=== PATIENT | male | born 1975 | race Caucasian/White ===

== ENCOUNTER 2019-09-13 19:58 | Emergency (ER) | payer OTHER ==
[~2019-09-13] VITALS: Ht 177.8 cm; Wt 112.0 kg
[2019-09-13 20:27] VITALS: Ht 177.8 cm; Wt 112.0 kg
[2019-09-13 22:11] LABS: PLATELET COUNT 359 x10^3mcL (130-400)
[2019-09-13 22:14] LABS: BASOPHIL % 0 % (0-2)
[2019-09-13 22:28] LABS: ALBUMIN 3.3 g/dL (3.4-5.0); ALKALINE PHOSPHATASE 61 U/L (46-116); ALT/SGPT 29 U/L (16-63); AST/SGOT 15 U/L (15-37); BILIRUBIN TOTAL 0.4 mg/dL (0.20-1.00); CALCIUM 8.7 mg/dL (8.5-10.1); CARBON DIOXIDE 28.4 mmol/L (21-32); CHLORIDE SERUM 99 mmol/L (98-107); CREATININE SERUM 0.9 mg/dL (0.7-1.3); GFR1 > 60 mL/min; GLUCOSE SERUM 213 mg/dL (74-106); POTASSIUM SERUM 3.9 mmol/L (3.5-5.1); SODIUM SERUM 136 mmol/L (136-145); TOTAL PROTEIN, SERUM 8.1 g/dL (6.4-8.2)
[2019-09-14 07:20] VITALS: BP 118/71
== END 2019-09-14 07:20 | disposition short-term general hospital (02) ==
LOC: ED 19:58
PROVIDERS: Emergency Medicine
DX: K62.89 Other specified diseases of anus and rectum (principal)
CPT/HCPCS: J0295; J2270; J2405; Q9967

== ENCOUNTER 2020-09-03 11:01 | Inpatient (IN) | payer OTHER ==
[~2020-09-03] VITALS: Ht 175.3 cm; Wt 131.5 kg
[2020-09-03 11:03] VITALS: Ht 175.3 cm; Wt 131.5 kg
[2020-09-03 12:14] LABS: CALCIUM 8.6 mg/dL (8.5-10.1); CARBON DIOXIDE 22.3 mmol/L (21-32); CHLORIDE SERUM 90 mmol/L (98-107); CREATININE SERUM 0.9 mg/dL (0.7-1.3); GFR1 > 60 mL/min; GLUCOSE SERUM 307 mg/dL (74-106); POTASSIUM SERUM 4.4 mmol/L (3.5-5.1); SODIUM SERUM 125 mmol/L (136-145)
[2020-09-03 12:25] LABS: ALKALINE PHOSPHATASE 42 U/L (46-116); ALT/SGPT 42 U/L (16-63); AST/SGOT 67 U/L (15-37); BILIRUBIN TOTAL 0.59 mg/dL (0.20-1.00); C REACTIVE PROTEIN 14.4 mg/dL (<=0.9); LACTIC DEHYDROGENASE (LDH) 688 U/L (100-190); TOTAL PROTEIN, SERUM 8.1 g/dL (6.4-8.2)
[2020-09-03 12:43] LABS: PLATELET COUNT 165 x10^3mcL (130-400); RED CELL DISTRIBUTION WIDTH 13.1 % (11.5-14.5)
[2020-09-03 14:18] LABS: UA SPECIFIC GRAVITY 1.015 (1.005-1.035); microscopic required? YES; urine erythrocyte TRACE (NEGATIVE)
[2020-09-03 15:13] LABS: MONOCYTE 5 % (0-7); SEGMENTED NEUTROPHILS 85 % (37-75); rbc morphology (normal/abnorm) NORMAL (NORMAL)
[2020-09-03 21:03] LABS: AMPHETAMINE QUAL UR NONE DETECTED (See below)
[2020-09-03] MEDS ORDERED: METFORMIN HCL1000 M2 PO (21:21)
[2020-09-03] MEDS ORDERED: ACTOS15 M1 PO (21:21)
[2020-09-03 22:24] VITALS: BP 123/79
[2020-09-04 05:15] VITALS: BP 137/76
[2020-09-04 07:52] VITALS: BP 134/78
[2020-09-04 11:16] LABS: BASOPHIL % 0.2 % (0-2); PLATELET COUNT 242 x10^3mcL (130-400); RED CELL DISTRIBUTION WIDTH 12.8 % (11.5-14.5)
[2020-09-04 12:18] VITALS: BP 139/89
[2020-09-04 13:56] VITALS: BP 139/89
[2020-09-04 15:51] VITALS: BP 106/70
[2020-09-04 21:11] VITALS: BP 154/90
[2020-09-05 05:20] VITALS: BP 111/69
[2020-09-05 07:40] LABS: CALCIUM 7.9 mg/dL (8.5-10.1); CARBON DIOXIDE 23.4 mmol/L (21-32); CHLORIDE SERUM 93 mmol/L (98-107); CREATININE SERUM 0.8 mg/dL (0.7-1.3); GFR1 > 60 mL/min; GLUCOSE SERUM 270 mg/dL (74-106); POTASSIUM SERUM 3.7 mmol/L (3.5-5.1); SODIUM SERUM 126 mmol/L (136-145)
[2020-09-05 08:42] VITALS: BP 146/99
[2020-09-05 12:17] VITALS: BP 107/69
[2020-09-05 14:01] LABS: MAGNESIUM 2.3 mg/dL (1.8-2.4); PHOSPHOROUS 2.9 mg/dL (2.5-4.9)
[2020-09-05 15:31] VITALS: BP 110/73
[2020-09-06 05:51] VITALS: BP 125/84
[2020-09-06 07:17] LABS: BASOPHIL % 0.6 % (0-2); PLATELET COUNT 270 x10^3mcL (130-400)
[2020-09-06 07:28] LABS: CALCIUM 8.2 mg/dL (8.5-10.1); CARBON DIOXIDE 24.9 mmol/L (21-32); CHLORIDE SERUM 94 mmol/L (98-107); CREATININE SERUM 0.8 mg/dL (0.7-1.3); GFR1 > 60 mL/min; GLUCOSE SERUM 241 mg/dL (74-106); POTASSIUM SERUM 3.7 mmol/L (3.5-5.1); SODIUM SERUM 129 mmol/L (136-145)
[2020-09-06 08:44] VITALS: BP 149/104
[2020-09-06 09:34] LABS: BILIRUBIN DIRECT 0.18 mg/dL (0.0-0.2); BILIRUBIN TOTAL 0.4 mg/dL (0.20-1.00); TOTAL PROTEIN, SERUM 7.1 g/dL (6.4-8.2)
[2020-09-06 09:44] LABS: ALBUMIN 2.4 g/dL (3.4-5.0)
[2020-09-06 11:50] VITALS: BP 117/84
[2020-09-06 16:28] VITALS: BP 110/76
[2020-09-06 21:31] VITALS: BP 105/72
[2020-09-07 05:37] VITALS: BP 111/62
[2020-09-07 07:27] LABS: BILIRUBIN DIRECT 0.15 mg/dL (0.0-0.2); BILIRUBIN TOTAL 0.3 mg/dL (0.20-1.00); TOTAL PROTEIN, SERUM 6.5 g/dL (6.4-8.2)
[2020-09-07 07:29] LABS: ALBUMIN 2.3 g/dL (3.4-5.0)
[2020-09-07 10:12] VITALS: BP 144/84
[2020-09-07 13:06] VITALS: BP 122/94
[2020-09-07 17:23] VITALS: BP 144/90
[2020-09-07 23:10] VITALS: BP 114/79
[2020-09-08 06:15] VITALS: BP 113/87
[2020-09-08 07:15] LABS: BASOPHIL % 1.3 % (0-2); PLATELET COUNT 268 x10^3mcL (130-400); RED CELL DISTRIBUTION WIDTH 12.6 % (11.5-14.5)
[2020-09-08 07:30] LABS: ALKALINE PHOSPHATASE 37 U/L (46-116); ALT/SGPT 31 U/L (16-63); AST/SGOT 30 U/L (15-37); BILIRUBIN DIRECT 0.17 mg/dL (0.0-0.2); BILIRUBIN TOTAL 0.5 mg/dL (0.20-1.00); C REACTIVE PROTEIN 3.1 mg/dL (<=0.9); CARBON DIOXIDE 24.1 mmol/L (21-32); CHLORIDE SERUM 97 mmol/L (98-107); CREATININE SERUM 0.7 mg/dL (0.7-1.3); GFR1 > 60 mL/min; GLUCOSE SERUM 180 mg/dL (74-106); MAGNESIUM 1.9 mg/dL (1.8-2.4); POTASSIUM SERUM 3.3 mmol/L (3.5-5.1); SODIUM SERUM 133 mmol/L (136-145); TOTAL PROTEIN, SERUM 6.4 g/dL (6.4-8.2)
[2020-09-08 07:36] LABS: ALBUMIN 2.3 g/dL (3.4-5.0)
[2020-09-08 08:45] VITALS: BP 121/77
[2020-09-08 12:30] VITALS: BP 119/74
[2020-09-08 17:47] VITALS: BP 115/75
[2020-09-08 21:19] VITALS: BP 121/82
[2020-09-09 06:33] VITALS: BP 115/68
[2020-09-09 07:50] LABS: PLATELET COUNT 338 x10^3mcL (130-400); RED CELL DISTRIBUTION WIDTH 12.1 % (11.5-14.5)
[2020-09-09 08:44] LABS: ALKALINE PHOSPHATASE 41 U/L (46-116); ALT/SGPT 33 U/L (16-63); AST/SGOT 31 U/L (15-37); BILIRUBIN DIRECT 0.23 mg/dL (0.0-0.2); BILIRUBIN TOTAL 0.6 mg/dL (0.20-1.00); CARBON DIOXIDE 22.5 mmol/L (21-32); CHLORIDE SERUM 95 mmol/L (98-107); CREATININE SERUM 0.7 mg/dL (0.7-1.3); GFR1 > 60 mL/min; GLUCOSE SERUM 173 mg/dL (74-106); MAGNESIUM 1.8 mg/dL (1.8-2.4); POTASSIUM SERUM 3.8 mmol/L (3.5-5.1); SODIUM SERUM 130 mmol/L (136-145); TOTAL PROTEIN, SERUM 6.4 g/dL (6.4-8.2)
[2020-09-09 08:58] LABS: ALBUMIN 2.2 g/dL (3.4-5.0)
[2020-09-09 09:01] VITALS: BP 108/56
[2020-09-09 12:05] VITALS: BP 121/70
[2020-09-09 16:25] VITALS: BP 118/74
[2020-09-09 21:23] VITALS: BP 127/70
[2020-09-10 06:01] VITALS: BP 116/57
[2020-09-10 08:39] LABS: CALCIUM 8.4 mg/dL (8.5-10.1); CARBON DIOXIDE 23.2 mmol/L (21-32); CHLORIDE SERUM 92 mmol/L (98-107); CREATININE SERUM 0.9 mg/dL (0.7-1.3); GFR1 > 60 mL/min; GLUCOSE SERUM 216 mg/dL (74-106); SODIUM SERUM 127 mmol/L (136-145)
[2020-09-10 08:41] LABS: BASOPHIL % 0.1 % (0-2); PLATELET COUNT 345 x10^3mcL (130-400)
[2020-09-10 08:50] LABS: BILIRUBIN DIRECT 0.22 mg/dL (0.0-0.2); BILIRUBIN TOTAL 0.54 mg/dL (0.20-1.00); TOTAL PROTEIN, SERUM 6.3 g/dL (6.4-8.2)
[2020-09-10 08:56] VITALS: BP 108/60
[2020-09-10 08:58] LABS: ALBUMIN 2.2 g/dL (3.4-5.0)
[2020-09-10 13:24] VITALS: BP 117/81
[2020-09-10 17:10] VITALS: BP 124/80
[2020-09-10 20:58] VITALS: BP 130/85
[2020-09-11 05:57] VITALS: BP 119/75
[2020-09-11 06:44] LABS: BASOPHIL % 0.1 % (0.2-1.5); PLATELET COUNT 383 x10^3mcL (152-348); RED CELL DISTRIBUTION WIDTH 13.1 % (12.1-16.2)
[2020-09-11 07:13] LABS: CALCIUM 8.7 mg/dL (8.5-10.1); CARBON DIOXIDE 30.2 mmol/L (21-32); CHLORIDE SERUM 94 mmol/L (98-107); GFR1 > 60 mL/min; GLUCOSE SERUM 209 mg/dL (74-106); SODIUM SERUM 132 mmol/L (136-145)
[2020-09-11 09:03] VITALS: BP 113/77
[2020-09-11 12:52] VITALS: BP 94/70
[2020-09-11 17:11] VITALS: BP 128/84
[2020-09-11 20:42] VITALS: BP 116/80
[2020-09-12 05:53] VITALS: BP 117/69
[2020-09-12 08:33] VITALS: BP 111/66
[2020-09-12 12:15] VITALS: BP 117/64
[2020-09-12 16:08] VITALS: BP 108/67
[2020-09-12 23:50] VITALS: BP 123/73
[2020-09-13 04:41] VITALS: BP 109/69
[2020-09-13 08:19] LABS: BASOPHIL % 0.3 % (0.2-1.5); PLATELET COUNT 390 x10^3mcL (152-348); RED CELL DISTRIBUTION WIDTH 13.1 % (12.1-16.2)
[2020-09-13 08:57] VITALS: BP 107/72
[2020-09-13 09:26] LABS: CALCIUM 8.1 mg/dL (8.5-10.1); CARBON DIOXIDE 23.5 mmol/L (21-32); CHLORIDE SERUM 91 mmol/L (98-107); CREATININE SERUM 0.7 mg/dL (0.7-1.3); GFR1 > 60 mL/min; GLUCOSE SERUM 195 mg/dL (74-106); SODIUM SERUM 126 mmol/L (136-145)
[2020-09-13 09:29] LABS: C REACTIVE PROTEIN 16.1 mg/dL (<=0.9)
[2020-09-13 12:01] VITALS: BP 100/64
[2020-09-13 18:26] VITALS: BP 122/75
[2020-09-13 20:21] VITALS: BP 112/71
[2020-09-14 04:35] VITALS: BP 104/65
[2020-09-14 07:37] LABS: BASOPHIL % 0.4 % (0.2-1.5); RED CELL DISTRIBUTION WIDTH 13.1 % (12.1-16.2)
[2020-09-14 07:54] LABS: PLATELET COUNT 424 x10^3mcL (152-348)
[2020-09-14 08:53] VITALS: BP 101/63
[2020-09-14 09:05] LABS: CALCIUM 8.6 mg/dL (8.5-10.1); CARBON DIOXIDE 26.6 mmol/L (21-32); CHLORIDE SERUM 91 mmol/L (98-107); CREATININE SERUM 0.7 mg/dL (0.7-1.3); GFR1 > 60 mL/min; GLUCOSE SERUM 218 mg/dL (74-106); POTASSIUM SERUM 4.1 mmol/L (3.5-5.1); SODIUM SERUM 127 mmol/L (136-145)
[2020-09-14 12:04] VITALS: BP 122/87
[2020-09-14 17:23] VITALS: BP 124/82
[2020-09-14 20:00] VITALS: BP 129/81
[2020-09-15 04:59] VITALS: BP 119/83
[2020-09-15 08:02] LABS: BASOPHIL % 0.5 % (0.2-1.5); RED CELL DISTRIBUTION WIDTH 12.9 % (12.1-16.2)
[2020-09-15 08:16] VITALS: BP 115/74
[2020-09-15 08:25] LABS: CALCIUM 8.4 mg/dL (8.5-10.1); CARBON DIOXIDE 25.9 mmol/L (21-32); CHLORIDE SERUM 91 mmol/L (98-107); CREATININE SERUM 0.7 mg/dL (0.7-1.3); GFR1 > 60 mL/min; GLUCOSE SERUM 167 mg/dL (74-106); POTASSIUM SERUM 3.9 mmol/L (3.5-5.1); SODIUM SERUM 127 mmol/L (136-145)
[2020-09-15 11:21] LABS: PLATELET COUNT 437 x10^3mcL (152-348)
[2020-09-15 11:54] VITALS: BP 126/84
[2020-09-15 16:14] VITALS: BP 132/75
[2020-09-15 20:32] VITALS: BP 119/72
[2020-09-16 05:09] VITALS: BP 109/70
[2020-09-16 08:10] VITALS: BP 120/60
[2020-09-16 11:50] VITALS: BP 115/63
[2020-09-16 15:33] VITALS: BP 118/69
[2020-09-16 20:23] VITALS: BP 150/90
[2020-09-17 05:17] VITALS: BP 94/58
[2020-09-17 08:06] LABS: PLATELET COUNT 205 x10^3mcL (152-348)
[2020-09-17 08:15] LABS: CALCIUM 8.3 mg/dL (8.5-10.1); CARBON DIOXIDE 22.3 mmol/L (21-32); CHLORIDE SERUM 84 mmol/L (98-107); CREATININE SERUM 1.2 mg/dL (0.7-1.3); GFR1 > 60 mL/min; GLUCOSE SERUM 415 mg/dL (74-106); POTASSIUM SERUM 4.9 mmol/L (3.5-5.1)
[2020-09-17 08:20] LABS: SODIUM SERUM 117 mmol/L (136-145)
[2020-09-17 09:03] VITALS: BP 107/72
[2020-09-17 11:41] LABS: SEGMENTED NEUTROPHILS 89 % (37-75)
[2020-09-17 11:42] LABS: MONOCYTE 4 % (0-7)
[2020-09-17 11:43] LABS: BAND NEUTROPHIL 2 % (0-10); rbc morphology (normal/abnorm) NORMAL (NORMAL)
[2020-09-17 12:18] VITALS: BP 104/60
[2020-09-17 17:35] VITALS: BP 119/73
[2020-09-17 17:59] LABS: UA SPECIFIC GRAVITY >=1.030 (1.005-1.035); microscopic required? YES; urine erythrocyte 3+ (NEGATIVE)
[2020-09-17 20:15] VITALS: BP 97/50
== END 2020-09-17 21:27 | disposition expired | DRG 871 ==
LOC: ED 11:01 → MU 18:49
PROVIDERS: Emergency Medicine; Family Medicine; ADMIT Internal Medicine; ATTEND Internal Medicine
PROC: XW13325 Transfusion of Convalescent Plasma (Nonautologous) into Peripheral Vein, Percutaneous Approach, New Technology Group 5 (ICD-10-PCS; principal; 2020-09-06)
PROC: XW033E5 Introduction of Remdesivir Anti-infective into Peripheral Vein, Percutaneous Approach, New Technology Group 5 (ICD-10-PCS; 2020-09-06)
DX: A41.89 Other specified sepsis (principal); U07.1 COVID-19; J12.89 Other viral pneumonia; J96.01 Acute respiratory failure with hypoxia; E87.1 Hypo-osmolality and hyponatremia; E44.1 Mild protein-calorie malnutrition; I10 Essential (primary) hypertension; E11.9 Type 2 diabetes mellitus without complications; E11.65 Type 2 diabetes mellitus with hyperglycemia; E66.01 Morbid (severe) obesity due to excess calories; Z71.3 Dietary counseling and surveillance
CPT/HCPCS: 36600; 82962; 83880; 85378; 87804; 97116-GP; 97530-GP; G0378; J1100; J1200; J1644; J1815; J2060; J2270; J2405; J3535; J7050; U0003